=== PATIENT | female | born 1990 | race Caucasian/White ===

== ENCOUNTER 2018-12-03 10:21 | Inpatient (IN) | payer SELFPAY ==
[~2018-12-03] VITALS: Ht 160 cm; Wt 86.2 kg
[2018-12-03 10:58] LABS: BASOPHILS % 0.4 % (0.0-2.0); EOSINOPHILS % 0.2 % (0.0-5.0); LYMPHOCYTES % 16.4 % (20.0-50.0); MEAN CORPUSCULAR VOLUME 69.7 fL (81.0-99.0); MEAN PLATELET VOLUME 7.2 fl (7.4-10.4); MONOCYTES % 5.3 % (2.0-8.0); NEUTROPHILS % 77.7 % (40.0-76.0); PLATELET 308 x1000/uL (130-400); RED CELL DISTRIBUTION WIDTH 18.2 % (11.6-14.6)
[2018-12-03 11:02] LABS: HEMATOCRIT. 20.9 % (36.0-48.0); HEMOGLOBIN. 6.6 g/dL (12.0-16.0)
[2018-12-03 11:04] LABS: CHLORIDE 108 mEq/L (98-107)
[2018-12-03 11:05] LABS: PROTHROMBIN TIME 10.5 sec (9.1-11.1)
[2018-12-03 11:42] LABS: PLATELET ESTIMATE NORMAL
[2018-12-03 12:13] LABS: CLARITY URINE TURBID (CLEAR); KETONES URINE TRACE (NEGATIVE); LEUKOCYTE ESTERASE URINE 2+ (NEGATIVE); NITRITE URINE POSITIVE (NEGATIVE); OCCULT BLOOD URINE 3+ (NEGATIVE); PROTEIN URINE 4+ (NEGATIVE); SPECIFIC GRAVITY URINE 1.039 (1.005-1.030)
[2018-12-03 12:18] LABS: COLOR URINE BLOODY (YELLOW)
[2018-12-03] MEDS ORDERED: CEFTRIAXONE 1 G PREMIX 50 ML IV ONE (15:30)
[2018-12-03] MEDS ORDERED: ACETAMINOPHEN 500MG TABLET PO ONE (17:00)
[2018-12-04] MEDS ORDERED: SODIUM CHLORIDE 0.9% 1,000 ML IV ONE (03:15)
[2018-12-04 03:31] LABS: MEAN CORPUSCULAR HEMOGLOBIN 23.8 pg (28.0-32.0); MEAN CORPUSCULAR VOLUME 73.5 fL (81.0-99.0); PLATELET 263 x1000/uL (130-400); RED CELL DISTRIBUTION WIDTH 20.7 % (11.6-14.6)
[2018-12-04 03:36] LABS: HEMOGLOBIN 6.7 g/dL (12.0-16.0)
[2018-12-04 03:37] LABS: HEMATOCRIT 20.6 % (36.0-48.0)
[2018-12-04] MEDS ORDERED: ACETAMINOPHEN 325MG TABLET PO SCH (04:15)
[2018-12-04] MEDS ORDERED: DIPHENHYDRAMINE 50MG/ML VIAL IV SCH (04:16)
[2018-12-04 11:33] VITALS: BP 104/55
[2018-12-04 12:00] VITALS: BP 104/55
[2018-12-04] MEDS ORDERED: RHO(D) IMMUNE GLOBULIN 300 MCG/SYR IM NR (15:30)
[2018-12-04 16:00] VITALS: BP 101/52
[2018-12-04] MEDS: LACTATED RINGERS 1,000 ML IV SCH (16:29)
[2018-12-04 20:00] VITALS: BP 114/61
[2018-12-05] VITALS: BP 102/55
[2018-12-05] MEDS: LACTATED RINGERS 1,000 ML IV SCH (03:39)
[2018-12-05 04:00] VITALS: BP 117/63
[2018-12-05] MEDS ORDERED: IBUPROFEN 600MG TABLET PO PRN (04:00)
[2018-12-05 07:08] LABS: HEMATOCRIT 22.2 % (36.0-48.0); HEMOGLOBIN 7.3 g/dL (12.0-16.0); MEAN CORPUSCULAR HEMOGLOBIN 24.9 pg (28.0-32.0); MEAN CORPUSCULAR VOLUME 75.3 fL (81.0-99.0); PLATELET 282 x1000/uL (130-400); RED BLOOD CELL COUNT 2.95 mill/uL (4.2-5.4); RED CELL DISTRIBUTION WIDTH 20.9 % (11.6-14.6)
[2018-12-05 08:00] VITALS: BP 96/55
[2018-12-05 11:00] VITALS: BP 102/60
[2018-12-05 11:14] VITALS: BP 102/60
== END 2018-12-05 13:25 | disposition home or self-care (01) | DRG 564 ==
LOC: ER 10:21 → 8WST 13:46 → EDBEDREQTM 13:48 → EDBEDREQ 13:48 → ENRESERV 22:14 → CANRESERV 22:14 → ENRESERV 12-04 10:02
PROVIDERS: ADMIT Obstetrics & Gynecology; ATTEND Obstetrics & Gynecology
PROC: 30233N1 Transfusion of Nonautologous Red Blood Cells into Peripheral Vein, Percutaneous Approach (ICD-10-PCS; principal; 2018-12-03)
PROC: 30233S1 Transfusion of Nonautologous Globulin into Peripheral Vein, Percutaneous Approach (ICD-10-PCS; 2018-12-04)
DX: O03.9 Complete or unspecified spontaneous abortion without complication (principal); D64.9 Anemia, unspecified; O99.011 Anemia complicating pregnancy, first trimester; Z3A.01 Less than 8 weeks gestation of pregnancy; O26.891 Other specified pregnancy related conditions, first trimester; T80.92XA Unspecified transfusion reaction, initial encounter; Y84.8 Other medical procedures as the cause of abnormal reaction of the patient, or of later complication, without mention of misadventure at the time of the procedure; Y92.238 Other place in hospital as the place of occurrence of the external cause
CPT/HCPCS: 36415; 36430; 71045; 76801; 84484; 84702; 85027; 86850; 86900; 86920; 90384; 93005; 96361; 96372; 96374; 99291; J0696; J1200; J7030; J7040; J7120; P9016

== ENCOUNTER 2019-08-06 06:29 | Observation (INO) | payer MEDICAID, OTHER | END 2019-08-06 06:30 | disposition home or self-care (01) | LOC: 8 EST LDRP 06:29 | PROVIDERS: ADMIT Specialist; ATTEND Specialist | DX: Z34.90 Encounter for supervision of normal pregnancy, unspecified, unspecified trimester (principal); Z53.21 Procedure and treatment not carried out due to patient leaving prior to being seen by health care provider | CPT/HCPCS: G0378 ==

== ENCOUNTER 2019-08-06 06:45 | Emergency (ER) | payer MEDICAID ==
[~2019-08-06] VITALS: Ht 162.6 cm; Wt 90.0 kg
[2019-08-06 07:54] LABS: BASOPHILS % 0.3 % (0.0-2.0)
[2019-08-06 07:58] LABS: EOSINOPHILS % 0.7 % (0.0-5.0); HEMATOCRIT. 21.5 % (36.0-48.0); LYMPHOCYTES % 13.5 % (20.0-50.0); MEAN CORPUSCULAR HEMOGLOBIN 23.3 pg (28.0-32.0); MEAN PLATELET VOLUME 7.4 fl (7.4-10.4); MONOCYTES % 3.9 % (2.0-8.0); NEUTROPHILS % 81.6 % (40.0-76.0); PLATELET 377 x1000/uL (130-400); RED BLOOD CELL COUNT 2.99 mill/uL (4.2-5.4); RED CELL DISTRIBUTION WIDTH 17.7 % (11.6-14.6)
[2019-08-06 07:59] LABS: CHLORIDE 106 mEq/L (98-107)
[2019-08-06 11:15] LABS: HEMATOCRIT 19.8 % (36.0-48.0); HEMOGLOBIN 6.3 g/dL (12.0-16.0)
[2019-08-06] MEDS ORDERED: DEXT 5%/LR + PITOCIN 20UNITS/L 1,000 ML IV ONE (13:15)
[2019-08-06] MEDS ORDERED: RHO(D) IMMUNE GLOBULIN 300 MCG/SYR IM ONE (13:15)
[2019-08-06 19:54] VITALS: BP 98/51
== END 2019-08-06 20:00 | disposition home or self-care (01) ==
LOC: ER 06:45
DX: O99.012 Anemia complicating pregnancy, second trimester (principal); Z3A.18 18 weeks gestation of pregnancy; F17.200 Nicotine dependence, unspecified, uncomplicated
CPT/HCPCS: 36415; 76856; 80048; 84702; 85014; 85018; 85025; 86850; 86870; 86900; 86901; 86920; 88309; 90384; 96365; 96372; 99284; J2590; P9016